=== PATIENT | male | born 1995 | race African-American/Black ===

== ENCOUNTER 2017-08-12 03:11 | Emergency (ER) | payer OTHER ==
[~2017-08-12] VITALS: Ht 180.3 cm; Wt 90.1 kg
[2017-08-12 03:14] VITALS: BP 148/89
[2017-08-12] MEDS ORDERED: CEFTRIAXONE 250 MG ONE (03:46)
[2017-08-12] MEDS ORDERED: AZITHROMYCIN 250 MG TABLET ONE (03:56)
[2017-08-12] MEDS ORDERED: AZITHROMYCIN 500 MG TABLET PO ONE (04:00)
[2017-08-12] MEDS ORDERED: CEFTRIAXONE 250 MG IM ONE (04:00)
== END 2017-08-12 04:14 | disposition home or self-care (01) ==
LOC: ED 03:30
DX: Z20.2 Contact with and (suspected) exposure to infections with a predominantly sexual mode of transmission (principal)
CPT/HCPCS: 96372; 99283; J0696

== ENCOUNTER 2017-08-21 14:16 | Emergency (ER) | payer OTHER ==
[~2017-08-21] VITALS: Ht 180.3 cm; Wt 92.0 kg
[2017-08-21 14:18] VITALS: BP 152/78
== END 2017-08-21 16:15 | disposition home or self-care (01) ==
LOC: ED 16:14
DX: Z20.2 Contact with and (suspected) exposure to infections with a predominantly sexual mode of transmission (principal)
CPT/HCPCS: 87491; 87591; 99284